=== PATIENT | male | born 1990 | race Caucasian/White ===

== ENCOUNTER 2019-10-25 11:17 | Emergency (ER) | payer BC, OTHER ==
[2019-10-25] MEDS ORDERED: Lidocaine 1% 30 ML SDV INJECT ONE (11:19)
--- NOTE | 2019-10-25 11:45 | EDM.PDOC ---
ED HPI GENERAL MEDICAL PROBLEM - General Stated Complaint: LACERATION TO THUMB Time Seen by Provider: 10/25/19 11:52 Source of Information: Reports: Patient History Limitations: Reports: No Limitations - History of Present Illness INITIAL COMMENTS - FREE TEXT/NARRATIVE: Patient comes emergency department today from work with concerns of a laceration to his right thumb. 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 This happened just prior to arrival. His last tetanus shot was a couple years ago. This happened to his right thumb and he is right-hand dominant. He denies any paresthesia or change in the functionality of his right thumb. Denies any other injury other than the laceration to his right thumb. - Related Data Allergies Allergy/AdvReac Type Severity Reaction Status Date / Time Penicillins Allergy Swelling Verified 11/03/14 10:23 Home Meds: Home Meds . [No Known Home Meds] 11/03/14 [History] Past Medical History - Past Health History Medical/Surgical History: Denies Medical/Surgical History ED ROS GENERAL - Review of Systems Review Of Systems: Comprehensive ROS is negative, except as noted in HPI. ED EXAM, SKIN/RASH Exam: See Below Exam Limited By: No Limitations General Appearance: Alert, WD/WN, No Apparent Distress Respiratory/Chest: No Respiratory Distress Cardiovascular: Normal Peripheral Pulses, Regular Rate, Rhythm Peripheral Pulses: 2+: Radial (L), Radial (R) Neurological: Alert, Oriented, No Motor/Sensory Deficits Psychiatric: Normal Affect, Normal Mood Skin: Warm, Dry, Intact, Normal Color Location, Skin: Upper Extremity, Right (on the distal phalange lateral aspect there is a 2 cm distal to proximal subcutaneous laceration. Does involve the nail bed or plate. Does not involve the interphalangeal joint. He is able to flex and extend appropriately at the IP joint. Rest of the right hand is atraumatic. And CMS is appropriate.) Associated features: Warmth, Inflammation Lymphatic: No Adenopathy ED SKIN PROCEDURES - Laceration/Wound Repair Right Lateral Digit - 1st (Thumb) Appearance: Subcutaneous, Linear Distal NVT: Neuro & Vascular Intact, No Tendon Injury Anesthetic Type: Local Local Anesthesia - Lidocaine (Xylocaine): 1% Plain Local Anesthetic Volume: 4cc Skin Prep: Chlorhexidine (Hibiciens) Exploration/Debridement/Repair: Wound Explored, In a Bloodless Field, Explored to Base, No Foreign Material Found Closed with: Sutures Lac/Wound length In cm: 2 Suture Size: 5-0 # of Sutures: 6 Suture Type: Nylon Sterile Dressing Applied: Nurse Tetanus Status Addressed: Yes Course - Orders/Labs/Meds Meds: Medications Discontinued Medications Generic Name Dose Route Start Last Admin Trade Name Amanuel PRN Reason Stop Dose Admin Lidocaine HCl 30 ml 10/25/19 11:19 10/25/19 11:36 Xylocaine-Mpf 1% INJECT 10/25/19 11:20 30 ml ONETIME ONE Administration - Re-Assessments/Exams Free Text/Narrative Re-Assessment/Exam: 10/25/19 11:57 See procedure log for laceration repair. Departure - Departure Time of Disposition: 11:40 Disposition: Home, Self-Care 01 Clinical Impression: Thumb laceration Qualifiers: Encounter type: initial encounter Damage to nail status: without damage Foreign body presence: without foreign body Laterality: right Qualified Code(s) : S61.011A - Laceration without foreign body of right thumb without damage to nail, initial encounter - Discharge Information Instructions: Sutures, Vini, or Adhesive Wound Closure, [id number], Sutured Wound Care, [id number] Additional Instructions: Cleanse the wound twice daily with soap and water. Bacitracin bandage until healed. Okay to wash hands with soap and water do not soak your thumb in water. Sutures out in 10 days with PCP Watch for signs of infection. Return to the ED if new or worsening symptoms. Sepsis Event Note - Focused Exam Date Exam was Performed: 10/25/19 Time Exam was Performed: 11:54 - Assessment/Plan Assessment:: Right thumb 2cm laceration repaired with sutures. Plan: Cleanse the wound twice daily with soap and water. Bacitracin bandage until healed. Okay to wash hands with soap and water do not soak your thumb in water. Sutures out in 10 days with PCP Watch for signs of infection. Return to the ED if new or worsening symptoms.
== END 2019-10-25 12:00 | disposition home or self-care (01) ==
LOC: VM.ED 11:17
DX: S61.011A Laceration without foreign body of right thumb without damage to nail, initial encounter (principal); Z88.0 Allergy status to penicillin; W26.8XXA Contact with other sharp object(s), not elsewhere classified, initial encounter
CPT/HCPCS: 12001; 99282; J2001

== ENCOUNTER 2020-11-03 02:50 | Emergency (ER) | payer BC ==
[2020-11-03] MEDS: Morphine 2 MG/ML SYRINGE IVPUSH ONE ×2 (03:02→04:20)
[2020-11-03] MEDS: Ondansetron 4 MG/2 ML SDV IVPUSH ONE (03:05)
[2020-11-03] MEDS: Morphine 4 MG/ML Syringe IVPUSH ONE (03:45)
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
--- NOTE | 2020-11-03 08:56 | CR ---
[id number] RAD/RAD Shoulder Left 2V Min Exam: RAD Shoulder Left 2V Min Indication:INJURY Comparison: No prior imaging for comparison. Discussion/Impression: Anterior dislocation of the humerus in relation of the glenoid. No other significant abnormality. Heath Reyes MD 11/03/20 [id number] Thank you for allowing us to participate in the care of your patient.
== END 2020-11-03 05:07 | disposition other institution (70) ==
LOC: VM.ED 02:50
DX: S43.015A Anterior dislocation of left humerus, initial encounter (principal); Z88.0 Allergy status to penicillin; Y04.0XXA Assault by unarmed brawl or fight, initial encounter
CPT/HCPCS: 23650; 73030-LT; 96374; 96375; 96376; 99283; 99284-25; J2270; J2405; J3360

== ENCOUNTER 2023-02-22 00:30 | Emergency (ER) | payer BC ==
[2023-02-22] MEDS ORDERED: Fluorescein 1 MG Ophth Strip EYELF ONE (00:35)
[2023-02-22] MEDS ORDERED: Tetracaine HCl/PF 0.5% 4 ML Bottle EYELF ONE (00:35)
[2023-02-22] MEDS ORDERED: Ciprofloxacin 0.3% Ophth Soln 2.5 ML Bottle EYELF ONE (00:53)
== END 2023-02-22 01:10 | disposition home or self-care (01) ==
LOC: VM.ED 00:30
DX: T15.92XA Foreign body on external eye, part unspecified, left eye, initial encounter (principal); Z88.0 Allergy status to penicillin
CPT/HCPCS: 65205; 99283; A9270-GY; J3490